=== PATIENT | female | born 1945 | race Caucasian/White ===

== ENCOUNTER 2021-02-11 08:59 | Inpatient (IN) | payer MEDICARE, BC ==
[2021-02-11] VITALS (11 sets, daily range): BP systolic 96–117; BP diastolic 48–76; PULSE 73–88; TEMP 98.2–98.8
[~2021-02-11] VITALS: Ht 152.4 cm; Wt 41.8 kg
[2021-02-11 09:45] LABS: BASO % 0.5 % (0.0-2.0); EOS # 0.1 (0.0-0.7); EOS % 1.7 % (0-4.0); GRAN # 3.8 (1.4-6.5); GRAN % 63.5 % (42.2-75.2); LYMPH # 1.6 (1.2-3.4); LYMPH % 26.2 % (20.0-51.0); MEAN CELL VOLUME 102 fl (80.0-100.0); MEAN CORPUSCULAR HGB CONC 30 g/dl (33.0-37.0); MEAN PLATELET VOLUME 9.9 fl (7.4-10.4); MONO # 0.5 (0.1-0.6); MONO % 7.6 % (1.7-9.3); PLATELET COUNT 331 K/mm3 (130-400); RED BLOOD COUNT 1.69 M/mm3 (4.10-5.30); REDCELL DISTRIBUTION WIDTH-CV 17.3 % (11.5-14.5)
[2021-02-11 09:47] LABS: HEMATOCRIT 17.3 % (37.0-47.0); HEMOGLOBIN 5.2 g/dl (12.5-16.0); MEAN CORPUSCULAR HEMOGLOBIN 31 pg (27.0-31.0)
[2021-02-11 09:51] LABS: ALANINE AMINOTRANSFERASE 16 U/L (4-34); ALKALINE PHOSPHATASE 41 U/L (50-136); ANION GAP 2 mmol/L (7-16); AST,SGOT 26 U/L (15-37); BILIRUBIN,TOTAL 0.2 mg/dL (0.0-1.0); BLOOD UREA NITROGEN 17 mg/dL (7-17); CALCIUM 8.6 mg/dL (8.4-10.2); CARBON DIOXIDE 25 mmol/L (22-30); CHLORIDE 109 mmol/L (98-107); CREATININE, serum 0.77 (0.52-1.25); GLUCOSE 93 mg/dL (74-106); POTASSIUM 3.8 mmol/L (3.4-5.0); SODIUM 137 mmol/L (137-145); TOTAL PROTEIN 5.7 gm/dL (6.4-8.2)
[2021-02-11 09:52] LABS: C-REACTIVE PROTEIN < 0.5 mg/dL (0.0-0.9)
[2021-02-11] MEDS ORDERED: IBU400 MG PO (10:32)
[2021-02-11] MEDS ORDERED: ASPIRIN 81M81 MG/TA2 PO (10:35)
[2021-02-11] MEDS ORDERED: LIPITOR20 MG PO (10:35)
[2021-02-11 13:47] LABS: IRON,SERUM 39 ug/dL (35-150); TOTAL IRON BINDING CAPACITY 307 ug/dL (265-497)
[2021-02-11 17:41] LABS: HEMATOCRIT 27.8 % (37.0-47.0); HEMOGLOBIN 8.8 g/dl (12.5-16.0)
[2021-02-11] MEDS ORDERED: BENADRYL25 M2 PO (18:19)
[2021-02-11] MEDS ORDERED: ALLEGRA ALLERGY60 MG PO (18:20)
--- NOTE | 2021-02-11 18:29 | NUR ---
admitted per WC to room 311 at 1800, admission assessment and physical assessment, see interventions for further info, in bed and call light within reach, denies needs at this time
--- NOTE | 2021-02-11 20:01 | NUR ---
Awake, alert, oriented x 4, able to make needs known, appetite good, respirations even and unlabored, denies pain, updated on plan of care, coloscopy, colonoscopy prep- verbalizes understanding.
[2021-02-11 22:46] LABS: FOLATE (FOLIC ACID) 14.5 ng/mL (2.0-20.0)
--- NOTE | 2021-02-11 23:00 | NUR ---
Patient vomitted coffee ground emesis and large volume of clear fluid- Call placed to Kim Rosado to notify and to GI MD vice president of contracts- see new orders Patient is stable, abdomen soft and flat, denies nausea, VS stable.
[2021-02-11 23:40] LABS: HEMATOCRIT 27.4 % (37.0-47.0)
[2021-02-12] VITALS (7 sets, daily range): BP systolic 97–114; BP diastolic 36–56; PULSE 79–86; TEMP 97.9–99.1
[2021-02-12 06:38] LABS: BASO # 0.1 (0.0-0.2); BASO % 0.6 % (0.0-2.0); EOS # 0.1 (0.0-0.7); EOS % 1.3 % (0-4.0); GRAN # 5.4 (1.4-6.5); LYMPH # 1.7 (1.2-3.4); LYMPH % 21.8 % (20.0-51.0); MEAN CORPUSCULAR HGB CONC 32 g/dl (33.0-37.0); MEAN PLATELET VOLUME 9.7 fl (7.4-10.4); MONO # 0.5 (0.1-0.6); MONO % 6.8 % (1.7-9.3); PLATELET COUNT 299 K/mm3 (130-400); RED BLOOD COUNT 2.62 M/mm3 (4.10-5.30); REDCELL DISTRIBUTION WIDTH-CV 17.9 % (11.5-14.5)
[2021-02-12 06:40] LABS: CALCIUM 8.3 mg/dL (8.4-10.2); CREATININE, serum 0.69 (0.52-1.25); HEMATOCRIT 24.9 % (37.0-47.0); MEAN CELL VOLUME 95 fl (80.0-100.0); MEAN CORPUSCULAR HEMOGLOBIN 31 pg (27.0-31.0); POTASSIUM 4.2 mmol/L (3.4-5.0)
--- NOTE | 2021-02-12 10:53 | NUR ---
PHYLLIS met with the patient and her , Vu ([id number]#[phone]), to discuss discharge plan. The patient lives in [place] with her . She reports independence with ADLs and has a walking stick. The patient's PCP is Dr. Hernesto Gonzalez and she receives her medications from [facility]. She reports no difficulties obtaining her meds. The patient provided PHYLLIS with a copy of her DPOA-HC. PHYLLIS placed the document in the patient's chart. The patient's DPOA-HC is her . The patient plans to return home with her upon discharge. No additional needs at this time. *Discharge plan: home with *
--- NOTE | 2021-02-12 12:18 | NUR ---
PT LEFT UNIT TO ENDOSCOPY. NO S/S OF DISTRESS NOTICED. REPORT GIVEN TO ENDO NURSE. SPOUSE WITH PT.
[2021-02-13] VITALS (12 sets, daily range): BP systolic 92–106; BP diastolic 38–54; PULSE 65–85; TEMP 97.5–98.7
[2021-02-13 07:08] LABS: BASO % 0.6 % (0.0-2.0); EOS # 0.1 (0.0-0.7); EOS % 2.6 % (0-4.0); GRAN # 3.2 (1.4-6.5); GRAN % 63.9 % (42.2-75.2); LYMPH # 1.2 (1.2-3.4); LYMPH % 23.8 % (20.0-51.0); MEAN CELL VOLUME 95 fl (80.0-100.0); MEAN CORPUSCULAR HGB CONC 32 g/dl (33.0-37.0); MEAN PLATELET VOLUME 9.7 fl (7.4-10.4); MONO # 0.5 (0.1-0.6); MONO % 8.9 % (1.7-9.3); PLATELET COUNT 292 K/mm3 (130-400); RED BLOOD COUNT 2.62 M/mm3 (4.10-5.30); REDCELL DISTRIBUTION WIDTH-CV 17.7 % (11.5-14.5)
[2021-02-13 07:13] LABS: HEMOGLOBIN 7.9 g/dl (12.5-16.0); MEAN CORPUSCULAR HEMOGLOBIN 30 pg (27.0-31.0)
[2021-02-13 07:18] LABS: CALCIUM 8.6 mg/dL (8.4-10.2); CREATININE, serum 0.78 (0.52-1.25); POTASSIUM 3.8 mmol/L (3.4-5.0)
--- NOTE | 2021-02-13 08:25 | NUR ---
0720 PT LEFT THE UNIT TO ENDOSCOPY FOR COLONOSCOPY. NO S/S OF DISTRESS NOTED. SPOUSE AT THE BEDSIDE.
--- NOTE | 2021-02-13 09:00 | NUR ---
0840 PT RECEIVED ENDOSCOPY. NO S/S OF DISTRESS NOTICED. POST OP VITAL SIGNS INPROGRESS. COMFORT MEASURES IN PLACE. WILL CONTINUE TO MONITOR.
[2021-02-13] MEDS ORDERED: NATURAL IRON65 MG PO (10:30)
--- NOTE | 2021-02-13 10:59 | NUR ---
Initial visit; Patient thanked Planning Assistant for looking in on her and offering God's blessings.
--- NOTE | 2021-02-13 17:45 | NUR ---
1700 DISCHARGE INSTRUCTIONS REVIEWED WITH PT AND HER SPOUSE. ALL QUESTIONS ANSWERED. IV ACCESS REMOVED. NO S/S OF DISTRESS NOTICED. PT SPOUSE AT THE BESIDE TO TRANSPORT HER HOME.
== END 2021-02-13 17:10 | disposition home or self-care (01) | DRG 369 ==
LOC: COL.ER 08:59 → MEDICAL 11:53
PROVIDERS: Emergency Medicine; Internal Medicine Gastroenterology; Physician Assistant; ADMIT Internal Medicine
PROC: 0DJD8ZZ Inspection of Lower Intestinal Tract, Via Natural or Artificial Opening Endoscopic (ICD-10-PCS; 2021-02-12)
PROC: 0DB68ZX Excision of Stomach, Via Natural or Artificial Opening Endoscopic, Diagnostic (ICD-10-PCS; principal; 2021-02-12 12:30)
DX: K22.6 Gastro-esophageal laceration-hemorrhage syndrome (principal); K57.12 Diverticulitis of small intestine without perforation or abscess without bleeding; E78.00 Pure hypercholesterolemia, unspecified; R51.9 Headache, unspecified; D50.0 Iron deficiency anemia secondary to blood loss (chronic); Z20.822 Contact with and (suspected) exposure to COVID-19; K29.70 Gastritis, unspecified, without bleeding
CPT/HCPCS: 99222-AI; 99239; C9113; J2405; J2704; J7030; P9016; Q9967

== ENCOUNTER 2024-01-28 08:50 | Emergency (ER) | payer MEDICARE, BC ==
[~2024-01-28 08:50] MED LIST: ALLEGRA ALLERGY60 MG PO; ASPIRIN 81M81 MG/TA2 PO; BENADRYL25 M2 PO; IBU400 MG PO; LIPITOR20 MG PO; NATURAL IRON65 MG PO
[2024-01-28 08:56] VITALS: TEMP 97.5
[2024-01-28] MEDS ORDERED: NS 1,000 ML IV ONE ×3 (09:45→11:30)
[2024-01-28] MEDS ORDERED: Morphine 4 MG/ML VIAL IV PRN (09:45)
[2024-01-28] MEDS ORDERED: Ondansetron 4 MG/2 ML VIAL IV ONE ×2 (09:45)
[2024-01-28] MEDS ORDERED: Morphine 4 MG/ML VIAL IV ONE (09:45)
[2024-01-28 10:30] LABS: BASO # 0.1 K/mm3 (0.0-0.2); BASO % 0.8 % (0.0-2.0); EOS # 0.1 K/mm3 (0.0-0.7); EOS % 1.2 % (0.0-4.0); GRAN # 5.5 K/mm3 (1.4-6.5); GRAN % 65.2 % (42.2-75.2); HEMOGLOBIN 11.9 g/dl (12.5-16.0); LYMPH % 23.6 % (20.0-51.0); MEAN CELL VOLUME 87 fl (80.0-100.0); MEAN CORPUSCULAR HEMOGLOBIN 30 pg (27-31); MEAN CORPUSCULAR HGB CONC 34 g/dl (33.0-37.0); MEAN PLATELET VOLUME 9.1 fl (7.4-10.4); MONO # 0.8 K/mm3 (0.1-0.6); PLATELET COUNT 316 K/mm3 (130-400); RED BLOOD COUNT 3.97 M/mm3 (4.10-5.30); REDCELL DISTRIBUTION WIDTH-CV 11.9 % (11.5-14.5)
[2024-01-28 10:31] LABS: HEMATOCRIT 34.6 % (37.0-47.0)
[2024-01-28 10:48] LABS: ALBUMIN 3.7 g/dL (3.4-4.8); BILIRUBIN,TOTAL 0.6 mg/dL (0.2-1.2); CALCIUM 9.2 mg/dL (8.4-10.2); CREATININE, serum 0.73 mg/dL (0.57-1.11); POTASSIUM 3.7 mEq/L (3.5-4.5); TOTAL PROTEIN 6.7 g/dl (6.2-8.1)
[2024-01-28] MEDS ORDERED: Ketorolac 15 MG/ML VIAL IV ONE (11:00)
[2024-01-28] MEDS ORDERED: PERCOCET 325 MG1 TA2 PO (11:22)
[2024-01-28] MEDS ORDERED: FLEXERIL 1010 MG/TAB PO (11:22)
[2024-01-28] MEDS ORDERED: REGLAN 10MG10 MG/TAB PO (11:22)
[2024-01-28] MEDS ORDERED: MOTRIN 800800 MG/TAB PO (11:22)
[2024-01-28] MEDS ORDERED: droPERidol 2.5 MG/ML 2 ML VIAL IV ONE (11:30)
[2024-01-28 12:27] VITALS: BP 108/62; PULSE 77
== END 2024-01-28 12:28 | disposition home or self-care (01) ==
LOC: COL.ER 08:50
PROVIDERS: Personal Emergency Response Attendant
DX: M54.16 Radiculopathy, lumbar region (principal)
CPT/HCPCS: J1790; J1885; J2270; J2360; J2405; J7030